=== PATIENT | male | born 1995 | race Hispanic/Latino ===

== ENCOUNTER 2021-03-28 16:39 | Emergency (ER) | payer SELFPAY ==
[2021-03-28] MEDS ORDERED: Divalproex Sodium 250 MG (DR) TAB ONE (17:15)
== END 2021-03-28 17:36 ==
LOC: ERS 16:39
DX: R56.9 Unspecified convulsions (principal); F17.210 Nicotine dependence, cigarettes, uncomplicated; Z79.899 Other long term (current) drug therapy
CPT/HCPCS: 99284

== ENCOUNTER 2022-02-28 17:57 | Emergency (ER) | payer SELFPAY ==
[2022-02-28] MEDS ORDERED: Acetaminophen 500 MG TAB ONE (18:24)
== END 2022-02-28 19:26 | disposition home or self-care (01) ==
LOC: ERS 17:57
DX: G40.909 Epilepsy, unspecified, not intractable, without status epilepticus (principal); F17.210 Nicotine dependence, cigarettes, uncomplicated; Z79.899 Other long term (current) drug therapy
CPT/HCPCS: 36415; 80164; 99284

== ENCOUNTER 2022-06-20 05:47 | Emergency (ER) | payer OTHER, SELFPAY ==
[2022-06-20] MEDS ORDERED: Acetaminophen 500 MG TAB ONE (06:09)
[2022-06-20] MEDS ORDERED: Bacitracin 1 PK ONE (06:09)
[2022-06-20] MEDS ORDERED: Boostrix 0.5 ML (Tdap) VIAL (>/=7 yrs of age) ONE (06:10)
[2022-06-20] MEDS ORDERED: Divalproex Sodium DR 500 MG TAB PO SCH (06:15)
== END 2022-06-20 06:50 | disposition home or self-care (01) ==
LOC: ERS 05:47
DX: S09.90XA Unspecified injury of head, initial encounter (principal); G40.909 Epilepsy, unspecified, not intractable, without status epilepticus; W06.XXXA Fall from bed, initial encounter; Z79.899 Other long term (current) drug therapy
CPT/HCPCS: 36415; 80164; 90471; 90715; 93005

== ENCOUNTER 2022-10-20 13:31 | Emergency (ER) | payer SELFPAY | END 2022-10-20 14:34 | disposition home or self-care (01) | LOC: ERS 13:31 | DX: J32.0 Chronic maxillary sinusitis (principal); R09.81 Nasal congestion; F17.210 Nicotine dependence, cigarettes, uncomplicated | CPT/HCPCS: 99283 ==

== ENCOUNTER 2022-10-23 09:44 | Emergency (ER) | payer SELFPAY ==
[2022-10-23] MEDS ORDERED: Bicillin LA 2.4 MILL.UNITS/4 ML SYRINGE ONE (10:01)
== END 2022-10-23 10:40 | disposition home or self-care (01) ==
LOC: ERS 09:44
DX: Z20.2 Contact with and (suspected) exposure to infections with a predominantly sexual mode of transmission (principal); F17.210 Nicotine dependence, cigarettes, uncomplicated
CPT/HCPCS: 96372; 99283; J0561

== ENCOUNTER 2023-10-16 13:48 | Emergency (ER) | payer SELFPAY ==
[2023-10-16] MEDS ORDERED: levETIRAcetam 500 MG (5 mL) VIAL ONE ×2 (15:13→15:17)
[2023-10-16 15:34] LABS: #Eosinphils 0.1 thou/uL (0.0-0.7); #Monocytes 0.5 thou/uL (0.11-0.59); #Neutrophils 1.9 thou/uL (1.40-6.50); %Basophils 0.2 % (0.0-1.0); %Eosinophils 2.1 % (0.0-10.0); %Lymphocytes 44.3 % (21.0-51.0); %Monocytes 10.3 % (0.0-10.0); %Neutrophils 42.9 % (42.0-75.0); Hematocrit 39.4 % (42.0-52.0); Hemoglobin 13.8 g/dL (14.0-18.0); Mean Corpuscular Hemoglobin 32.8 pg (27.0-31.0); Mean Corpuscular Volume 93.6 fl (78.0-98.0); Platelet Count 197 10x3/uL (130-400); RBC Distribution Width 11.9 % (11.5-14.5); Red Blood Cell (RBC) Count 4.21 mill/uL (4.70-6.10); White Blood Cell (WBC) Count 4.4 10x3/uL (4.8-10.8)
[2023-10-16 15:55] LABS: ALT (SGPT) 8 U/L (8-55); AST (SGOT) 12 U/L (5-34); Albumin 4.3 g/dL (3.5-5.0); Alkaline Phosphatase 46 U/L (40-110); Anion Gap 15 mmol/L (10-20); BUN (Urea Nitrogen) 12 mg/dL (8.9-20.6); Bilirubin, Total 0.5 mg/dL (0.2-1.2); Calc. Creatinine Clearance 0 mL/min (70-130); Calcium 9.1 mg/dL (7.8-10.44); Carbon Dioxide 24 mmol/L (22-29); Chloride 105 mmol/L (98-107); Estimated GFR 121; Globulin 2.3 g/dL (2.4-3.5); Glucose 88 mg/dL (70-105); Potassium 4.4 mmol/L (3.5-5.1); Protein, Total 6.6 g/dL (6.0-8.3); Sodium 140 mmol/L (136-145)
[2023-10-16 15:56] LABS: Acetaminophen Less than 10 mcg/mL (10.0-30.0); Alcohol Less than 10.0 mg/dL (Less than 10); CK (CPK) 264 U/L (30-200); Salicylate Less than 8.0 mg/dL (15.0-30.0)
== END 2023-10-16 17:15 | disposition home or self-care (01) ==
LOC: ERS 13:48 → MERGE 13:48 → ERS 17:15
DX: G40.109 Localization-related (focal) (partial) symptomatic epilepsy and epileptic syndromes with simple partial seizures, not intractable, without status epilepticus (principal); F17.200 Nicotine dependence, unspecified, uncomplicated; Z79.899 Other long term (current) drug therapy
CPT/HCPCS: 36415; 70450; 80053; 80164; 80307; 82550; 83605; 84146; 85025; 93005; 96374; J1953

== ENCOUNTER 2023-10-17 01:24 | Emergency (ER) | payer SELFPAY ==
[2023-10-17] MEDS ORDERED: levETIRAcetam 500 MG (5 mL) VIAL ONE (01:44)
[2023-10-17 01:52] LABS: #Eosinphils 0.1 thou/uL (0.0-0.7); #Monocytes 0.8 thou/uL (0.11-0.59); #Neutrophils 3.1 thou/uL (1.40-6.50); %Basophils 0.4 % (0.0-1.0); %Eosinophils 1.5 % (0.0-10.0); %Lymphocytes 44.1 % (21.0-51.0); %Monocytes 10.8 % (0.0-10.0); %Neutrophils 42.8 % (42.0-75.0); Hematocrit 41.5 % (42.0-52.0); Hemoglobin 14.8 g/dL (14.0-18.0); Mean Corpuscular HGB CONC 35.7 g/dL (32.0-36.0); Mean Corpuscular Volume 92.4 fl (78.0-98.0); Platelet Count 228 10x3/uL (130-400); RBC Distribution Width 11.9 % (11.5-14.5); Red Blood Cell (RBC) Count 4.49 mill/uL (4.70-6.10); White Blood Cell (WBC) Count 7.3 10x3/uL (4.8-10.8)
[2023-10-17 03:00] LABS: Albumin 4.5 g/dL (3.5-5.0)
[2023-10-17 03:01] LABS: Chloride 108 mmol/L (98-107); Potassium 4.7 mmol/L (3.5-5.1); Sodium 147 mmol/L (136-145)
[2023-10-17 03:02] LABS: Glucose 89 mg/dL (70-105)
[2023-10-17 03:03] LABS: Globulin 2.4 g/dL (2.4-3.5); Protein, Total 6.9 g/dL (6.0-8.3)
[2023-10-17 03:04] LABS: Anion Gap 20 mmol/L (10-20); Bilirubin, Total 0.5 mg/dL (0.2-1.2); Carbon Dioxide 24 mmol/L (22-29)
[2023-10-17 03:05] LABS: Alkaline Phosphatase 54 U/L (40-110)
[2023-10-17 03:06] LABS: BUN (Urea Nitrogen) 12 mg/dL (8.9-20.6); Calc. Creatinine Clearance 0 mL/min (70-130); Estimated GFR 81
[2023-10-17 03:07] LABS: AST (SGOT) 15 U/L (5-34)
[2023-10-17 03:08] LABS: ALT (SGPT) 10 U/L (8-55)
[2023-10-17 03:09] LABS: Acetaminophen Less than 10 mcg/mL (10.0-30.0); Alcohol Less than 10.0 mg/dL (Less than 10); Magnesium 2.1 mg/dL (1.6-2.6); Salicylate Less than 8.0 mg/dL (15.0-30.0)
[2023-10-17] MEDS ORDERED: LORazepam 2 MG/ML SYR.(CARPUJECT) ONE (04:16)
== END 2023-10-17 05:15 | disposition home or self-care (01) ==
LOC: ERS 01:24 → MERGE 01:24 → ERS 05:15
DX: G40.909 Epilepsy, unspecified, not intractable, without status epilepticus (principal); F17.210 Nicotine dependence, cigarettes, uncomplicated; Z55.6 Problems related to health literacy; Z79.899 Other long term (current) drug therapy
CPT/HCPCS: 70450; 80053; 80164; 80307; 83735; 85025; 93005; 96361; 96365; 96375; J1953; J2060

== ENCOUNTER 2024-06-07 10:55 | Emergency (ER) | payer BC, SELFPAY ==
[2024-06-07] MEDS ORDERED: Boostrix 0.5 ML (Tdap) VIAL (>/=7 yrs of age) ONE (11:21)
[2024-06-07] MEDS ORDERED: Lacosamide 200 MG in Sodium Chloride 0.9% 50 ML IVPB SCH (11:45)
== END 2024-06-07 12:51 | disposition home or self-care (01) ==
LOC: ERS 10:55
DX: R56.9 Unspecified convulsions (principal); S80.212A Abrasion, left knee, initial encounter; S80.211A Abrasion, right knee, initial encounter; Z91.148 Patient's other noncompliance with medication regimen for other reason
CPT/HCPCS: 90715; C9254

== ENCOUNTER 2025-03-25 21:17 | Emergency (ER) | payer SELFPAY ==
[2025-03-26 00:05] LABS: Bacteria/HPF None Seen HPF (None Seen); CAUTI Indications for Culture Dysuria,urgency,freq; Glucose, Urine (Dipstick) Normal (Negative); Leukocyte Negative Leu/uL (Negative); Protein, Urine (Dipstick) Negative (Neg-Trace); RBC/HPF None Seen HPF (0-3); Specific Gravity, Urine 1.029 (1.002-1.036); WBC/HPF 0-3 HPF (0-3)
[2025-03-26 00:11] LABS: Urine Culture Reflex No No
[2025-03-26 00:25] LABS: #Basophils Less than 0.03 10x3/uL (0.0-0.2); #Eosinophils 0.11 10x3/uL (0.0-0.7); #Monocytes 0.59 10x3/uL (0.11-0.59); #Neutrophils 1.64 10x3/uL (1.40-6.50); %Basophils 0.4 % (0.0-1.0); %Eosinophils 2.2 % (0.0-10.0); %Lymphocytes 53.1 % (21.0-51.0); %Monocytes 11.6 % (0.0-10.0); %Neutrophils 32.1 % (42.0-75.0); Hematocrit 41.1 % (42.0-52.0); Hemoglobin 14.1 g/dL (14.0-18.0); Mean Corpuscular Hemoglobin 31.5 pg (27.0-31.0); Mean Corpuscular Volume 91.7 fL (78.0-98.0); Platelet Count 183 10x3/uL (130-400); Red Blood Cell (RBC) Count 4.48 mill/uL (4.70-6.10); White Blood Cell (WBC) Count 5.10 10x3/uL (4.8-10.8)
[2025-03-26 00:41] LABS: ALT (SGPT) 17 U/L (Less than 45); AST (SGOT) 23 U/L (11-34); Albumin 3.8 g/dL (3.1-4.5); Alkaline Phosphatase 43 U/L (40-110); Anion Gap 13 mmol/L (10-20); BUN (Urea Nitrogen) 14 mg/dL (8.9-20.6); Bilirubin, Total 0.4 mg/dL (0.3-1.2); Calc. Creatinine Clearance 0 mL/min (70-130); Calcium 8.9 mg/dL (7.8-10.44); Carbon Dioxide 25 mmol/L (22-29); Chloride 104 mmol/L (98-107); Globulin 2.3 g/dL (2.4-3.5); Glucose 82 mg/dL (70-105); Potassium 3.9 mmol/L (3.5-5.1); Sodium 138 mmol/L (136-145)
[2025-03-26 05:42] LABS: Chlam.trachomatis by PCR,Urine Not Detected (NotDetected); GC N.gonorrhoeae PCR,UrineVOID Not Detected (NotDetected)
== END 2025-03-26 02:00 | disposition home or self-care (01) ==
LOC: ERS 21:17
DX: K92.1 Melena (principal); F17.210 Nicotine dependence, cigarettes, uncomplicated
CPT/HCPCS: 36415; 80053; 81001; 82274; 85025; 87491; 87591; 99284

== ENCOUNTER 2025-04-15 17:36 | Emergency (ER) | payer SELFPAY ==
[2025-04-15] MEDS ORDERED: Ketorolac Tromethamine 30 MG (1 mL) VIAL ONE (20:05)
[2025-04-15] MEDS ORDERED: Acetaminophen 500 MG TAB ONE (20:05)
== END 2025-04-15 20:15 | disposition home or self-care (01) ==
LOC: ERS 17:36
DX: G44.209 Tension-type headache, unspecified, not intractable (principal); F17.210 Nicotine dependence, cigarettes, uncomplicated
CPT/HCPCS: 96372; 99283; J1885; Q0162

== ENCOUNTER 2025-04-20 17:46 | Emergency (ER) | payer SELFPAY ==
[2025-04-20] MEDS ORDERED: Acetaminophen 500 MG TAB ONE (18:26)
[2025-04-20 18:37] LABS: #Basophils 0.03 10x3/uL (0.0-0.2); #Eosinophils 0.08 10x3/uL (0.0-0.7); #Monocytes 0.53 10x3/uL (0.11-0.59); #Neutrophils 3.08 10x3/uL (1.40-6.50); %Basophils 0.5 % (0.0-1.0); %Eosinophils 1.2 % (0.0-10.0); %Lymphocytes 42.3 % (21.0-51.0); %Monocytes 8.0 % (0.0-10.0); %Neutrophils 46.8 % (42.0-75.0); Hematocrit 40.7 % (42.0-52.0); Hemoglobin 14.0 g/dL (14.0-18.0); Mean Corpuscular Hemoglobin 31.0 pg (27.0-31.0); Mean Corpuscular Volume 90.2 fL (78.0-98.0); Platelet Count 221 10x3/uL (130-400); Red Blood Cell (RBC) Count 4.51 mill/uL (4.70-6.10); White Blood Cell (WBC) Count 6.59 10x3/uL (4.8-10.8)
[2025-04-20 18:53] LABS: Acetaminophen Less than 10 mcg/mL (Less than 10); Salicylate Less than 8.0 mg/dL (Less than 8.0)
[2025-04-20] MEDS ORDERED: Divalproex Sodium 250 MG DR.TAB ONE (18:53)
[2025-04-20 18:54] LABS: ALT (SGPT) 29 U/L (Less than 45); AST (SGOT) 26 U/L (11-34); Albumin 3.8 g/dL (3.1-4.5); Alkaline Phosphatase 53 U/L (40-110); Anion Gap 13 mmol/L (10-20); BUN (Urea Nitrogen) 12 mg/dL (8.9-20.6); Bilirubin, Total 0.2 mg/dL (0.3-1.2); CK (CPK) 164 U/L (30-200); Calc. Creatinine Clearance 0 mL/min (70-130); Calcium 9.2 mg/dL (7.8-10.44); Carbon Dioxide 28 mmol/L (22-29); Chloride 103 mmol/L (98-107); Globulin 2.8 g/dL (2.4-3.5); Glucose 89 mg/dL (70-105); Potassium 4.7 mmol/L (3.5-5.1); Sodium 139 mmol/L (136-145)
== END 2025-04-20 20:01 | disposition home or self-care (01) ==
LOC: ERS 17:46
DX: R56.9 Unspecified convulsions (principal)
CPT/HCPCS: 36415; 70450; 72125; 80053; 80164; 80175; 80307; 82550; 83605; 85025

== ENCOUNTER 2025-05-15 17:32 | Emergency (ER) | payer SELFPAY ==
[2025-05-15] MEDS ORDERED: Acetaminophen 500 MG TAB ONE ×2 (17:57→18:17)
[2025-05-15 18:10] LABS: #Basophils Less than 0.03 10x3/uL (0.0-0.2); #Eosinophils Less than 0.03 10x3/uL (0.0-0.7); #Monocytes 0.41 10x3/uL (0.11-0.59); #Neutrophils 4.00 10x3/uL (1.40-6.50); %Basophils 0.2 % (0.0-1.0); %Eosinophils 0.3 % (0.0-10.0); %Lymphocytes 26.3 % (21.0-51.0); %Monocytes 6.7 % (0.0-10.0); %Neutrophils 65.8 % (42.0-75.0); Hematocrit 42.2 % (42.0-52.0); Hemoglobin 14.5 g/dL (14.0-18.0); Mean Corpuscular Hemoglobin 31.2 pg (27.0-31.0); Mean Corpuscular Volume 90.8 fL (78.0-98.0); Platelet Count 183 10x3/uL (130-400); Red Blood Cell (RBC) Count 4.65 mill/uL (4.70-6.10); White Blood Cell (WBC) Count 6.08 10x3/uL (4.8-10.8)
[2025-05-15] MEDS ORDERED: lamoTRIgine 100 MG TAB PO SCH (18:15)
[2025-05-15 18:26] LABS: ALT (SGPT) 17 U/L (Less than 45); AST (SGOT) 23 U/L (11-34); Albumin 4.2 g/dL (3.1-4.5); Alkaline Phosphatase 56 U/L (40-110); Anion Gap 18 mmol/L (10-20); BUN (Urea Nitrogen) 12 mg/dL (8.9-20.6); Bilirubin, Total 0.5 mg/dL (0.3-1.2); Calc. Creatinine Clearance 0 mL/min (70-130); Calcium 9.5 mg/dL (7.8-10.44); Carbon Dioxide 23 mmol/L (22-29); Chloride 103 mmol/L (98-107); Globulin 2.6 g/dL (2.4-3.5); Glucose 73 mg/dL (70-105); Potassium 4.2 mmol/L (3.5-5.1); Sodium 140 mmol/L (136-145)
== END 2025-05-15 19:43 | disposition home or self-care (01) ==
LOC: ERS 17:32
DX: G40.909 Epilepsy, unspecified, not intractable, without status epilepticus (principal); Z79.899 Other long term (current) drug therapy; F17.210 Nicotine dependence, cigarettes, uncomplicated
CPT/HCPCS: 70450; 72125; 80053; 85025; 93005; 94760